=== PATIENT | female | born 1930 | race Caucasian/White ===

== ENCOUNTER 2017-01-10 10:47 | Inpatient (IN) | payer MEDICARE ==
[2017-01-10 12:43] LABS: HEMATOCRIT 34.7 % (36.0-47.0); HEMOGLOBIN 11.1 g/dL (12.0-15.5); HGB HCT DIFFERENCE -1.4; MEAN CORPUSCULAR HEMOGLOBIN 25.7 pg (27.0-33.4); MEAN CORPUSCULAR VOLUME 80 fl (80-97); RED BLOOD COUNT 4.32 10^6/uL (3.72-5.28); RED CELL DISTRIBUTION WIDTH 17.3 % (11.5-14.0); WHITE BLOOD COUNT 11.6 10^3/uL (4.0-10.5)
[2017-01-10 13:03] LABS: ALANINE AMINOTRANSFERASE 17 U/L (9-52); ALBUMIN 3.3 g/dL (3.5-5.0); ALKALINE PHOSPHATASE 104 U/L (38-126); ANION GAP 13 (5-19); ASPARTATE AMINO TRANSFERASE 13 U/L (14-36); BILIRUBIN,TOTAL 0.8 mg/dL (0.2-1.3); BLOOD UREA NITROGEN 70 mg/dL (7-20); CALCIUM 9.1 mg/dL (8.4-10.2); CARBON DIOXIDE 24 mmol/L (22-30); CHLORIDE 98 mmol/L (98-107); CREATININE RESULT 2.48 mg/dL (0.52-1.25); GLUCOSE 284 mg/dL (75-110); POTASSIUM 5.7 mmol/L (3.6-5.0); SODIUM 134.6 mmol/L (137-145); TOTAL PROTEIN 6.9 g/dL (6.3-8.2)
[2017-01-10] MEDS ORDERED: LEVOFLOXACIN 750 MG/D5W RTU 750 MG/150 ML RTUPB IV ONE (14:00)
[2017-01-10] MEDS ORDERED: ENOXAPARIN SODIUM INJ 30 MG/0.3 ML DISP.SYRIN SUBCUT ONE (14:00)
[2017-01-10] MEDS ORDERED: ENOXAPARIN SODIUM INJ 40 MG/0.4 ML DISP.SYRIN SUBCUT ONE (14:00)
[2017-01-10] MEDS ORDERED: NORMAL SALINE 1000 ML 1,000 ML IV PRN (14:29)
[2017-01-10] MEDS ORDERED: DEXTROSE 50%-WATER 25 GM/50 ML DISP.SYRIN IV PRN ×2 (15:59)
[2017-01-10] MEDS ORDERED: DEXTROSE 40% GEL 15 GM TUBE PO PRN ×2 (15:59)
[2017-01-10] MEDS ORDERED: GLUCAGON,HUMAN RECOMB 1 MG INJ IM PRN (15:59)
[2017-01-10 16:45] LABS: CHOLESTEROL 193.47 mg/dL (0-200); Direct HDL 40 mg/dL (>40); TRIGLYCERIDES 162 mg/dL (<150)
[2017-01-10 16:56] LABS: DIRECT LDL 95 mg/dL (<100)
[2017-01-10 16:58] LABS: VLDL CHOLESTEROL 32.4 mg/dL (10-31)
[2017-01-10 17:25] LABS: APPEARANCE,URINE CLEAR; BILIRUBIN,URINE NEGATIVE (NEGATIVE); GLUCOSE, URINE NEGATIVE (NEGATIVE); KETONES,URINE NEGATIVE (NEGATIVE); LEUKOCYTE ESTERASE,URINE NEGATIVE (NEGATIVE); NITRITE,URINE NEGATIVE (NEGATIVE); PROTEIN,URINE NEGATIVE (NEGATIVE); URINE SPECIFIC GRAVITY 1.012; UROBILINOGEN,URINE NEGATIVE mg/dL (<2.0)
[2017-01-10] MEDS ORDERED: (PENDING PHARMACY ID) (Oxycodone Hcl/Acetaminophen [Endocet 10-325 Mg Tablet] 1 TAB) PO SCH (18:00)
[2017-01-10] MEDS: SODIUM POLYSTYRENE SULFONATE 15 GM/60 ML PO SCH ×2 (18:16→23:29)
[2017-01-10] MEDS: OXYCODONE HCL IR 5 MG TABLET PO SCH ×2 (18:16→23:38)
[2017-01-10] MEDS: OXYCODONE-ACETAMINOPHEN 5-325 MG TABLET PO SCH ×2 (18:16→23:38)
[2017-01-10] MEDS: INSULIN LISPRO 100 UNIT/ML 3 ML VIAL SUBCUT PRN ×2 (18:21→23:37)
[2017-01-10] MEDS ORDERED: IPRATROPIUM/ALBUTEROL 0.5-2.5 MG/3 ML AMPUL NEB ONE (18:43)
[2017-01-10] MEDS ORDERED: METOPROLOL SUCCINATE 50 MG TAB.SR.24H PO SCH (22:45)
[2017-01-10] MEDS: NORMAL SALINE 250 ML with FUROSEMIDE 250 MG IV PRN ×2 (23:30)
[2017-01-11] MEDS: IPRATROPIUM/ALBUTEROL 0.5-2.5 MG/3 ML AMPUL NEB PRN ×2 (04:23→11:06)
[2017-01-11] MEDS: OXYCODONE HCL IR 5 MG TABLET PO SCH ×4 (06:07→23:37)
[2017-01-11] MEDS: OXYCODONE-ACETAMINOPHEN 5-325 MG TABLET PO SCH ×4 (06:07→23:38)
[2017-01-11] MEDS: SODIUM POLYSTYRENE SULFONATE 15 GM/60 ML PO SCH ×2 (06:07→13:25)
[2017-01-11 07:46] LABS: HEMATOCRIT 31.9 % (36.0-47.0); HEMOGLOBIN 10.2 g/dL (12.0-15.5); HGB HCT DIFFERENCE -1.3; MEAN CORPUSCULAR HEMOGLOBIN 25.5 pg (27.0-33.4); MEAN CORPUSCULAR VOLUME 80 fl (80-97); RED CELL DISTRIBUTION WIDTH 17.2 % (11.5-14.0); WHITE BLOOD COUNT 12.6 10^3/uL (4.0-10.5)
[2017-01-11 07:55] LABS: ALANINE AMINOTRANSFERASE 18 U/L (9-52); ALBUMIN 3.4 g/dL (3.5-5.0); ALKALINE PHOSPHATASE 80 U/L (38-126); ANION GAP 11 (5-19); ASPARTATE AMINO TRANSFERASE 22 U/L (14-36); BILIRUBIN,TOTAL 0.7 mg/dL (0.2-1.3); BLOOD UREA NITROGEN 76 mg/dL (7-20); CALCIUM 8.7 mg/dL (8.4-10.2); CARBON DIOXIDE 25 mmol/L (22-30); CHLORIDE 101 mmol/L (98-107); CREATININE RESULT 2.43 mg/dL (0.52-1.25); GLUCOSE 204 mg/dL (75-110); POTASSIUM 5.2 mmol/L (3.6-5.0); SODIUM 137.3 mmol/L (137-145); TOTAL PROTEIN 6.5 g/dL (6.3-8.2)
[2017-01-11 08:11] LABS: ANISOCYTOSIS 2+; BAND NEUTROPHILS % (MANUAL) 3 % (3-5); BASOPHILS % (MANUAL) 0 % (0-2); EOSINOPHILS % (MANUAL) 0 % (0-6); HYPOCHROMASIA SLIGHT; LYMPHOCYTES % (MANUAL) 2 % (13-45); POLYCHROMASIA SLIGHT; TOTAL CELLS COUNTED 100; TOXIC GRANULATION SLIGHT
--- NOTE | 2017-01-11 08:18 | EKG REPORT ---
SEVERITY:- ABNORMAL ECG - ATRIAL FIBRILLATION VENTRICULAR PREMATURE COMPLEX ABERRANT COMPLEX, POSSIBLY SUPRAVENTRICULAR PROBABLE INFERIOR INFARCT, AGE INDETERMINATE CONSIDER POSTERIOR WALL INVOLVEMENT BORDERLINE PROLONGED QT INTERVAL : Confirmed by: Sasha Ambrose MD 11-Jan-2017 08:17:50
[2017-01-11] MEDS ORDERED: ENOXAPARIN SODIUM INJ 40 MG/0.4 ML DISP.SYRIN SUBCUT SCH (10:00)
[2017-01-11] MEDS: ENOXAPARIN SODIUM INJ 30 MG/0.3 ML DISP.SYRIN SUBCUT SCH (10:50)
[2017-01-11] MEDS: INSULIN LISPRO 100 UNIT/ML 3 ML VIAL SUBCUT PRN (12:43)
[2017-01-11] MEDS: NORMAL SALINE 250 ML with FUROSEMIDE 250 MG IV PRN ×2 (17:09)
--- NOTE | 2017-01-11 17:49 | PDOC H&P ---
History of Present Illness Admission Date/PCP: 01/10/17 10:47 FAUSTO GONSALES MD History of Present Illness: INDU TAN is a 86 year old female, history of diabetes mellitus type II with complication, she came to the office with his son. The son was concerned that she may have aspirated because she sounded wheezy. She was seen in the office and evaluated patient and look acutely ill, the son also stated that she has lost appetite and that she was confused, I could not obtain any reasonable history from the patient. She is well-known to me, she has been my patient for over 10 years and she was obviously different from prior office visit. She was admitted directly from the office into the hospital for evaluation and management. A CT chest was done it showed patchy ground glass opacity throughout both lungs. The differential diagnoses included alveolar consolidation, edema versus pneumonia. There was associated acute kidney injury. The serum BNP was elevated and she was severely volume overloaded. She is status post right above knee amputation the left lower extremity was extremely edematous and on auscultation of the chest there was diffuse crackles and rales. The EKG showed atrial fibrillation, which is new. She has no history of A. fib and she is rate controlled, she is on beta noel, metoprolol succinate Past Medical History Cardiac Medical History: Reports: Hyperlipidema, Hypertension, Peripheral Vascular Disease - A history of peripheral vascular disease, status post right above knee ampu Pulmonary Medical History: Reports: Pneumonia Neurological Medical History: Reports: Ischemic CVA Endocrine Medical History: Reports: Diabetes Mellitus Type 2, Obesity Musculoskeltal Medical History: Reports: Arthritis Past Surgical History Past Surgical History: Reports: Amputation - R AKA, Appendectomy, Cholecystectomy, Hysterectomy, Orthopedic Surgery - right AKA Social History Lives with: Family Smoking Status: Never Smoker Frequency of Alcohol Use: None Hx Recreational Drug Use: No Drugs: None Hx Prescription Drug Abuse: No Family History Family History: None Parental Family History Reviewed: Yes Children Family History Reviewed: Yes Sibling(s) Family History Reviewed.: Yes Medication/Allergy Home Medications: Amlodipine Besylate [Norvasc 10 mg Tablet] 10 mg PO DAILY 01/10/17 Aspirin [Ecotrin] 81 mg PO DAILY 01/10/17 Furosemide [Lasix] 40 mg PO DAILY 01/10/17 Glucagon,Human Recombinant [Glucagon Emergency Kit] 1 mg SQ ASDIR PRN 01/10/17 Insulin Aspart [Novolog Flexpen] See Protocol SQ DAILY 01/10/17 Insulin Glargine,Hum.rec.anlog [Lantus Solostar] 10 units SQ DAILY 01/10/17 Metoprolol Succinate [Toprol XL 100 mg Tablet] 100 mg PO BID 01/10/17 Oxycodone HCl/Acetaminophen [Endocet 10-325 mg Tablet] 1 tab PO Q6 01/10/17 Pravastatin Sodium [Pravachol] 20 mg PO DAILY 01/10/17 Sitagliptin Phosphate [Januvia] 100 mg PO DAILY 01/10/17 Allergies/Adverse Reactions: No Known Allergies Allergy (Unverified 02/22/12 15:51) Review of Systems Constitutional: PRESENT: anorexia, fatigue Cardiovascular: PRESENT: dyspnea on exertion Gastrointestinal: PRESENT: bloating, nausea Neurological: PRESENT: confusion Hematologic/Lymphatic: PRESENT: easy bruising Physical Exam Vital Signs: Temp Pulse Resp BP Pulse Ox 97.7 F 69 22 H 141/88 H 92 01/11/17 10:40 01/11/17 14:00 01/11/17 11:09 01/11/17 10:40 01/11/17 11:09 Intake & Output 01/10/17 01/11/17 01/12/17 06:59 06:59 06:59 Intake Total 450 Output Total 450 Balance 0 Weight 115.1 kg General appearance: PRESENT: morbidly obese, severe distress Eye exam: PRESENT: periorbital swelling, PERRLA Respiratory exam: PRESENT: crackles Cardiovascular exam: PRESENT: +S1, +S2, systolic murmur GI/Abdominal exam: PRESENT: soft Extremities exam: PRESENT: right AKA, pedal edema - Of the left lower extremities Neurological exam: PRESENT: alert, altered Results Laboratory Results: 01/11/17 07:25 01/11/17 07:25 01/11/17 01/11/17 07:25 07:25 WBC 12.6 H RBC 4.00 Hgb 10.2 L Hct 31.9 L MCV 80 MCH 25.5 L MCHC 32.0 RDW 17.2 H Plt Count 196 Seg Neutrophils % Not Reportable Lymphocytes % Not Reportable Monocytes % Not Reportable Eosinophils % Not Reportable Basophils % Not Reportable Absolute Neutrophils Not Reportable Absolute Lymphocytes Not Reportable Absolute Monocytes Not Reportable Absolute Eosinophils Not Reportable Absolute Basophils Not Reportable Sodium 137.3 Potassium 5.2 H Chloride 101 Carbon Dioxide 25 Anion Gap 11 BUN 76 H Creatinine 2.43 H Est GFR ( Amer) 23 L Est GFR (Non-Af Amer) 19 L Glucose 204 H Calcium 8.7 Total Bilirubin 0.7 AST 22 ALT 18 Alkaline Phosphatase 80 Total Protein 6.5 Albumin 3.4 L 01/10/17 12:31 NT-Pro-B Natriuret Pep 36874 H 01/10/17 01/10/17 12:31 12:31 Sodium 134.6 L Potassium 5.7 H BUN 70 H Creatinine 2.48 H NT-Pro-B Natriuret Pep 32177 H Impressions: Chest CT 01/10/17 00:00 IMPRESSION: Suspect fluid overload or congestive failure, with alveolar pulmonary edema and small right, trace left pleural effusions. Underlying pneumonia could not entirely be excluded Renal Ultrasound 01/10/17 00:00 IMPRESSION: There is questionable perinephric fluid on the right. No other significant findings. Assessment & Plan - Diagnosis (1) Acute hypoxemic respiratory failure Is this a current diagnosis for this admission?: YesPlan: The oxygen saturation is in the low 90s and late 80s suggesting acute hypoxemic respiratory failure. She is presently requiring oxygen nasal cannula. She may require positive pressure ventilation with BiPAP (2) Paroxysmal atrial fibrillation Is this a current diagnosis for this admission?: Yes (3) Acute pulmonary edema Is this a current diagnosis for this admission?: YesPlan: Acute pulmonary edema. The differential diagnoses includes acute systolic heart failure, acute kidney injury with pulmonary edema, she may need hemodialysis if she doesn't respond to furosemide infusion. A 2-D echo will be requested to assess LV function
[2017-01-11] MEDS: PHARMACY COMMUNICATION ORDER MC SCH (18:26)
[2017-01-11] MEDS ORDERED: NORMAL SALINE 250 ML with FUROSEMIDE 250 MG IV PRN ×2 (18:32)
[2017-01-11 18:38] LABS: CREATINE KINASE MB 3.23 ng/mL (<4.55)
[2017-01-11 18:39] LABS: TROPONIN I < 0.012 ng/mL
--- NOTE | 2017-01-11 18:42 | PDOC PROGRESS REPORT ---
Subjective Progress Note for:: 01/11/17 Subjective:: Patient was seen by the bedside, she was admitted yesterday because of acute hypoxemic respiratory failure due to acute pulmonary edema, probably due to acute kidney injury, oliguric, type. Yesterday she was started on furosemide infusion at 10 mg/hr., she is still not diuresing very well. Family does not want hemodialysis, family wants patient to be DO NOT RESUSCITATE because that this patient. She does not want life support. She has been requiring positive pressure ventilation with BiPAP. Physical Exam Vital Signs: Temp Pulse Resp BP Pulse Ox 97.7 F 69 22 H 141/88 H 92 01/11/17 10:40 01/11/17 14:00 01/11/17 11:09 01/11/17 10:40 01/11/17 11:09 Intake & Output 01/10/17 01/11/17 01/12/17 06:59 06:59 06:59 Intake Total 450 401 Output Total 450 Balance 0 401 Weight 115.1 kg General appearance: PRESENT: severe distress Eye exam: PRESENT: PERRLA Respiratory exam: PRESENT: crackles Cardiovascular exam: PRESENT: +S1, +S2 GI/Abdominal exam: PRESENT: soft Extremities exam: PRESENT: pedal edema Neurological exam: PRESENT: alert Results Laboratory Results: 01/11/17 07:25 01/11/17 07:25 01/11/17 01/11/17 07:25 07:25 WBC 12.6 H RBC 4.00 Hgb 10.2 L Hct 31.9 L MCV 80 MCH 25.5 L MCHC 32.0 RDW 17.2 H Plt Count 196 Seg Neutrophils % Not Reportable Lymphocytes % Not Reportable Monocytes % Not Reportable Eosinophils % Not Reportable Basophils % Not Reportable Absolute Neutrophils Not Reportable Absolute Lymphocytes Not Reportable Absolute Monocytes Not Reportable Absolute Eosinophils Not Reportable Absolute Basophils Not Reportable Sodium 137.3 Potassium 5.2 H Chloride 101 Carbon Dioxide 25 Anion Gap 11 BUN 76 H Creatinine 2.43 H Est GFR ( Amer) 23 L Est GFR (Non-Af Amer) 19 L Glucose 204 H Calcium 8.7 Total Bilirubin 0.7 AST 22 ALT 18 Alkaline Phosphatase 80 Total Protein 6.5 Albumin 3.4 L 01/10/17 01/11/17 12:31 18:04 Creatine Kinase 282 H NT-Pro-B Natriuret Pep 41569 H Impressions: Chest CT 01/10/17 00:00 IMPRESSION: Suspect fluid overload or congestive failure, with alveolar pulmonary edema and small right, trace left pleural effusions. Underlying pneumonia could not entirely be excluded Renal Ultrasound 01/10/17 00:00 IMPRESSION: There is questionable perinephric fluid on the right. No other significant findings. Assessment & Plan - Diagnosis (1) Acute hypoxemic respiratory failure Is this a current diagnosis for this admission?: Yes (2) Paroxysmal atrial fibrillation Is this a current diagnosis for this admission?: Yes (3) Acute pulmonary edema Is this a current diagnosis for this admission?: Yes (4) Acute kidney injury Is this a current diagnosis for this admission?: YesPlan: She has oliguric acute kidney injury, will increase Lasix to 20 mg per hour, the acute kidney injury is probably due to ATN when she had arrived, she had relatively low blood pressure and acute pulmonary edema is probably renal etiology (5) Cardiorenal syndrome with renal failure Is this a current diagnosis for this admission?: Yes
[2017-01-11] MEDS: ATORVASTATIN CALCIUM 10 MG TABLET PO SCH (23:37)
[2017-01-12 02:53] LABS: CREATINE KINASE MB 2.88 ng/mL (<4.55)
[2017-01-12 03:03] LABS: TROPONIN I < 0.012 ng/mL
[2017-01-12] MEDS: METOPROLOL SUCCINATE 50 MG TAB.SR.24H PO SCH ×3 (03:54→22:49)
[2017-01-12] MEDS: IPRATROPIUM/ALBUTEROL 0.5-2.5 MG/3 ML AMPUL NEB PRN (06:37)
[2017-01-12] MEDS: OXYCODONE-ACETAMINOPHEN 5-325 MG TABLET PO SCH ×3 (06:52→17:50)
[2017-01-12] MEDS: OXYCODONE HCL IR 5 MG TABLET PO SCH ×3 (06:53→17:50)
[2017-01-12] MEDS: DOPAMINE HCL 800 MG/D5W 250 ML IV PRN (09:10)
[2017-01-12] MEDS ORDERED: ONDANSETRON HCL INJ/PF 4 MG/2 ML SDV ONE (09:19)
[2017-01-12] MEDS ORDERED: ONDANSETRON HCL INJ/PF 4 MG/2 ML SDV IV PRN (09:29)
[2017-01-12 10:17] LABS: VENOUS BLOOD BASE EXCESS 0.3 mmol/L; VENOUS BLOOD PH 7.28 (7.30-7.42)
[2017-01-12 10:20] LABS: HEMATOCRIT 30.3 % (36.0-47.0); HEMOGLOBIN 9.6 g/dL (12.0-15.5); HGB HCT DIFFERENCE -1.5; MEAN CORPUSCULAR HEMOGLOBIN 25.3 pg (27.0-33.4); MEAN CORPUSCULAR HGB CONC 31.6 g/dL (32.0-36.0); MEAN CORPUSCULAR VOLUME 80 fl (80-97); RED BLOOD COUNT 3.79 10^6/uL (3.72-5.28); RED CELL DISTRIBUTION WIDTH 17.3 % (11.5-14.0); WHITE BLOOD COUNT 13.4 10^3/uL (4.0-10.5)
[2017-01-12 10:39] LABS: ALANINE AMINOTRANSFERASE 22 U/L (9-52); ALBUMIN 3.2 g/dL (3.5-5.0); ALKALINE PHOSPHATASE 84 U/L (38-126); ANION GAP 15 (5-19); ASPARTATE AMINO TRANSFERASE 17 U/L (14-36); BILIRUBIN,TOTAL 0.6 mg/dL (0.2-1.3); BLOOD UREA NITROGEN 75 mg/dL (7-20); CALCIUM 8.6 mg/dL (8.4-10.2); CARBON DIOXIDE 23 mmol/L (22-30); CHLORIDE 101 mmol/L (98-107); CREATINE KINASE 247 U/L (30-135); CREATININE RESULT 2.27 mg/dL (0.52-1.25); GLUCOSE 281 mg/dL (75-110); MAGNESIUM 2.7 mg/dL (1.6-2.3); POTASSIUM 3.9 mmol/L (3.6-5.0); TOTAL PROTEIN 6.1 g/dL (6.3-8.2)
[2017-01-12 10:41] LABS: BAND NEUTROPHILS % (MANUAL) 1 % (3-5); BASOPHILS % (MANUAL) 0 % (0-2); EOSINOPHILS % (MANUAL) 1 % (0-6); LYMPHOCYTES % (MANUAL) 4 % (13-45); TOTAL CELLS COUNTED 100
[2017-01-12 10:42] LABS: ANISOCYTOSIS 1+; HYPOCHROMASIA 1+; POLYCHROMASIA SLIGHT; TOXIC GRANULATION SLIGHT
[2017-01-12 10:51] LABS: CREATINE KINASE MB 3.28 ng/mL (<4.55)
[2017-01-12 10:54] LABS: TROPONIN I < 0.012 ng/mL
[2017-01-12] MEDS: LEVOFLOXACIN 750 MG/D5W RTU 750 MG/150 ML RTUPB IV SCH (11:15)
[2017-01-12] MEDS: ENOXAPARIN SODIUM INJ 30 MG/0.3 ML DISP.SYRIN SUBCUT SCH (11:17)
[2017-01-12] MEDS: INSULIN LISPRO 100 UNIT/ML 3 ML VIAL SUBCUT PRN (11:28)
[2017-01-12 12:38] LABS: CREATININE URINE 101.5 mg/dL (Not Estab.); CREATININE URINE 109.4 mg/dL (Not Estab.)
--- NOTE | 2017-01-12 17:19 | PDOC PROGRESS REPORT ---
Subjective Progress Note for:: 01/12/17 Subjective:: Patient's condition is very poor, the blood pressure is very low and she was taken off the Lasix infusion and she is presently on dopamine infusion, she is a DO NOT RESUSCITATE status. Physical Exam Vital Signs: Temp Pulse Resp BP Pulse Ox 98.2 F 94 24 H 73/48 L 90 L 01/12/17 16:00 01/12/17 16:00 01/12/17 16:00 01/12/17 13:00 01/12/17 16:00 Intake & Output 01/11/17 01/12/17 01/13/17 06:59 06:59 06:59 Intake Total 450 1011 Output Total 450 525 100 Balance 0 486 -100 Weight 115.1 kg 119 kg General appearance: PRESENT: mild distress Eye exam: PRESENT: PERRLA Respiratory exam: PRESENT: clear to auscultation lolis Cardiovascular exam: PRESENT: +S1, +S2 GI/Abdominal exam: PRESENT: soft Neurological exam: PRESENT: altered Results Laboratory Results: 01/12/17 10:04 01/12/17 10:04 01/12/17 01/12/17 01/12/17 10:04 10:04 10:04 WBC 13.4 H RBC 3.79 Hgb 9.6 L Hct 30.3 L MCV 80 MCH 25.3 L MCHC 31.6 L RDW 17.3 H Plt Count 232 Seg Neutrophils % Not Reportable Lymphocytes % Not Reportable Monocytes % Not Reportable Eosinophils % Not Reportable Basophils % Not Reportable Absolute Neutrophils Not Reportable Absolute Lymphocytes Not Reportable Absolute Monocytes Not Reportable Absolute Eosinophils Not Reportable Absolute Basophils Not Reportable VBG pH 7.28 L VBG pCO2 61.0 VBG HCO3 28.0 VBG Base Excess 0.3 Sodium 139.0 Potassium 3.9 Chloride 101 Carbon Dioxide 23 Anion Gap 15 BUN 75 H Creatinine 2.27 H Est GFR ( Amer) 25 L Est GFR (Non-Af Amer) 20 L Glucose 281 H Calcium 8.6 Magnesium 2.7 H Total Bilirubin 0.6 AST 17 ALT 22 Alkaline Phosphatase 84 Total Protein 6.1 L Albumin 3.2 L 01/12/17 09:20 Sputum Gram Stain - Final 01/12/17 09:20 Sputum Sputum Culture - Final 01/10/17 01/11/17 01/11/17 12:31 18:04 18:04 Creatine Kinase 282 H CK-MB (CK-2) 3.23 Troponin I < 0.012 NT-Pro-B Natriuret Pep [id number] H 01/12/17 01/12/17 01/12/17 02:11 02:11 10:04 Creatine Kinase 218 H 247 H CK-MB (CK-2) 2.88 Troponin I < 0.012 NT-Pro-B Natriuret Pep 01/12/17 10:04 Creatine Kinase CK-MB (CK-2) 3.28 Troponin I < 0.012 NT-Pro-B Natriuret Pep 60022 H Impressions: Chest CT 01/10/17 00:00 IMPRESSION: Suspect fluid overload or congestive failure, with alveolar pulmonary edema and small right, trace left pleural effusions. Underlying pneumonia could not entirely be excluded Renal Ultrasound 01/10/17 00:00 IMPRESSION: There is questionable perinephric fluid on the right. No other significant findings. Assessment & Plan - Diagnosis (1) Acute hypoxemic respiratory failure Is this a current diagnosis for this admission?: Yes (2) Paroxysmal atrial fibrillation Is this a current diagnosis for this admission?: Yes (3) Acute pulmonary edema Is this a current diagnosis for this admission?: Yes (4) Acute kidney injury Is this a current diagnosis for this admission?: Yes (5) Cardiorenal syndrome with renal failure Is this a current diagnosis for this admission?: Yes (6) Hypotension Qualifiers: Hypotension type: unspecified hypotension type Qualified Code(s): I95.9 - Hypotension, unspecified Is this a current diagnosis for this admission?: YesPlan: Patient's prognosis is very poor presently on pressor dopamine
[2017-01-12] MEDS: PHARMACY COMMUNICATION ORDER MC SCH (17:53)
[2017-01-12] MEDS: ATORVASTATIN CALCIUM 10 MG TABLET PO SCH (22:49)
[2017-01-13] MEDS: OXYCODONE-ACETAMINOPHEN 5-325 MG TABLET PO SCH ×4 (00:05→18:16)
[2017-01-13] MEDS: OXYCODONE HCL IR 5 MG TABLET PO SCH ×4 (00:05→18:16)
[2017-01-13] MEDS: DOPAMINE HCL 800 MG/D5W 250 ML IV PRN (07:31)
[2017-01-13 08:06] LABS: HEMATOCRIT 29.4 % (36.0-47.0); HEMOGLOBIN 9.3 g/dL (12.0-15.5); HGB HCT DIFFERENCE -1.5; MEAN CORPUSCULAR HEMOGLOBIN 25.6 pg (27.0-33.4); MEAN CORPUSCULAR HGB CONC 31.5 g/dL (32.0-36.0); MEAN CORPUSCULAR VOLUME 81 fl (80-97); RED BLOOD COUNT 3.62 10^6/uL (3.72-5.28); RED CELL DISTRIBUTION WIDTH 17.1 % (11.5-14.0); WHITE BLOOD COUNT 10.9 10^3/uL (4.0-10.5)
[2017-01-13 08:23] LABS: ALANINE AMINOTRANSFERASE 25 U/L (9-52); ALBUMIN 3.2 g/dL (3.5-5.0); ALKALINE PHOSPHATASE 73 U/L (38-126); ANION GAP 17 (5-19); ASPARTATE AMINO TRANSFERASE 14 U/L (14-36); BILIRUBIN,TOTAL 0.5 mg/dL (0.2-1.3); BLOOD UREA NITROGEN 79 mg/dL (7-20); CALCIUM 8.2 mg/dL (8.4-10.2); CARBON DIOXIDE 21 mmol/L (22-30); CHLORIDE 100 mmol/L (98-107); CREATININE RESULT 2.35 mg/dL (0.52-1.25); GLUCOSE 269 mg/dL (75-110); POTASSIUM 3.9 mmol/L (3.6-5.0); SODIUM 137.8 mmol/L (137-145); TOTAL PROTEIN 5.7 g/dL (6.3-8.2)
[2017-01-13 08:26] LABS: BASOPHILS % (MANUAL) 0 % (0-2); EOSINOPHILS % (MANUAL) 0 % (0-6); LYMPHOCYTES % (MANUAL) 10 % (13-45); TOTAL CELLS COUNTED 100
[2017-01-13 08:28] LABS: ANISOCYTOSIS 1+; HYPOCHROMASIA 1+; OVALOCYTES SLIGHT; POIKILOCYTOSIS SLIGHT; POLYCHROMASIA SLIGHT
--- NOTE | 2017-01-13 09:11 | PDOC PROGRESS REPORT ---
Subjective Progress Note for:: 01/13/17 Subjective:: This is a 86-year-old female admitted for the respiratory failure heart failure and the pulmonary edema currently on dopamine drip and unable to continues the Lasix drip because of the blood pressures. Patient is unable to keep the oxygen mask and patient's O2 sats is drop. Patient and her significant morbid obesity with all other comorbid medical conditions with the poor prognosis and patient's currently is a DO NOT RESUSCITATE Physical Exam Vital Signs: Temp Pulse Resp BP Pulse Ox 97.2 F 96 22 H 111/96 H 94 01/13/17 07:29 01/13/17 07:29 01/13/17 07:29 01/13/17 04:00 01/13/17 07:29 Intake & Output 01/12/17 01/13/17 01/14/17 06:59 06:59 06:59 Intake Total 1011 1070 Output Total 525 700 Balance 486 370 Weight 119 kg 117 kg General appearance: PRESENT: no acute distress, obese Head exam: PRESENT: normocephalic Eye exam: PRESENT: PERRLA Mouth exam: PRESENT: neck supple Neck exam: ABSENT: JVD Respiratory exam: PRESENT: decreased breath sounds Cardiovascular exam: PRESENT: +S1, +S2 GI/Abdominal exam: PRESENT: normal bowel sounds, soft Extremities exam: PRESENT: pedal edema Neurological exam: PRESENT: alert, altered Results Laboratory Results: 01/13/17 07:52 01/13/17 07:52 01/12/17 01/12/17 01/12/17 10:04 10:04 10:04 WBC 13.4 H RBC 3.79 Hgb 9.6 L Hct 30.3 L MCV 80 MCH 25.3 L MCHC 31.6 L RDW 17.3 H Plt Count 232 Seg Neutrophils % Not Reportable Lymphocytes % Not Reportable Monocytes % Not Reportable Eosinophils % Not Reportable Basophils % Not Reportable Absolute Neutrophils Not Reportable Absolute Lymphocytes Not Reportable Absolute Monocytes Not Reportable Absolute Eosinophils Not Reportable Absolute Basophils Not Reportable VBG pH 7.28 L VBG pCO2 61.0 VBG HCO3 28.0 VBG Base Excess 0.3 Sodium 139.0 Potassium 3.9 Chloride 101 Carbon Dioxide 23 Anion Gap 15 BUN 75 H Creatinine 2.27 H Est GFR ( Amer) 25 L Est GFR (Non-Af Amer) 20 L Glucose 281 H Calcium 8.6 Magnesium 2.7 H Total Bilirubin 0.6 AST 17 ALT 22 Alkaline Phosphatase 84 Total Protein 6.1 L Albumin 3.2 L 01/13/17 01/13/17 07:52 07:52 WBC 10.9 H RBC 3.62 L Hgb 9.3 L Hct 29.4 L MCV 81 MCH 25.6 L MCHC 31.5 L RDW 17.1 H Plt Count 202 Seg Neutrophils % Not Reportable Lymphocytes % Not Reportable Monocytes % Not Reportable Eosinophils % Not Reportable Basophils % Not Reportable Absolute Neutrophils Not Reportable Absolute Lymphocytes Not Reportable Absolute Monocytes Not Reportable Absolute Eosinophils Not Reportable Absolute Basophils Not Reportable VBG pH VBG pCO2 VBG HCO3 VBG Base Excess Sodium 137.8 Potassium 3.9 Chloride 100 Carbon Dioxide 21 L Anion Gap 17 BUN 79 H Creatinine 2.35 H Est GFR ( Amer) 24 L Est GFR (Non-Af Amer) 20 L Glucose 269 H Calcium 8.2 L Magnesium Total Bilirubin 0.5 AST 14 ALT 25 Alkaline Phosphatase 73 Total Protein 5.7 L Albumin 3.2 L 01/12/17 09:20 Sputum Gram Stain - Final 01/12/17 09:20 Sputum Sputum Culture - Final 01/10/17 01/11/17 01/11/17 12:31 18:04 18:04 Creatine Kinase 282 H CK-MB (CK-2) 3.23 Troponin I < 0.012 NT-Pro-B Natriuret Pep 99965 H 01/12/17 01/12/17 01/12/17 02:11 02:11 10:04 Creatine Kinase 218 H 247 H CK-MB (CK-2) 2.88 Troponin I < 0.012 NT-Pro-B Natriuret Pep 01/12/17 10:04 Creatine Kinase CK-MB (CK-2) 3.28 Troponin I < 0.012 NT-Pro-B Natriuret Pep [id number] H Impressions: Chest CT 01/10/17 00:00 IMPRESSION: Suspect fluid overload or congestive failure, with alveolar pulmonary edema and small right, trace left pleural effusions. Underlying pneumonia could not entirely be excluded Renal Ultrasound 01/10/17 00:00 IMPRESSION: There is questionable perinephric fluid on the right. No other significant findings. Assessment & Plan - Diagnosis (1) Acute hypoxemic respiratory failure Is this a current diagnosis for this admission?: YesPlan: Continues on the oxygen and the BiPAP (2) Acute kidney injury Is this a current diagnosis for this admission?: YesPlan: Currently stable continues the current medications patient's Lasix drip was d/c (3) Acute pulmonary edema Is this a current diagnosis for this admission?: YesPlan: We will continues the patient on by mouth Lasix with the with the low blood pressures with close monitor and continues in her dopamine drip (4) Hypotension Qualifiers: Hypotension type: unspecified hypotension type Qualified Code(s): I95.9 - Hypotension, unspecified Is this a current diagnosis for this admission?: YesPlan: With the multifactorial medical conditions. 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: unspecified mcfp insulin use status Qualified Code(s): E11.649 - Type 2 diabetes mellitus with hypoglycemia without coma Is this a current diagnosis for this admission?: YesPlan: Stable - Time Time Spent with patient: 15-24 minutes Medications reviewed and adjusted accordingly: Yes Anticipated discharge: Other - Inpatient Certification Medical Necessity: Significant Comorbidiites Make Outpatient Treatment Too Risky , Need Close Monitoring Due to Risk of Patient Decompensation 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
[2017-01-13] MEDS: METOPROLOL SUCCINATE 50 MG TAB.SR.24H PO SCH ×2 (10:27→22:35)
[2017-01-13] MEDS: ENOXAPARIN SODIUM INJ 30 MG/0.3 ML DISP.SYRIN SUBCUT SCH (10:27)
[2017-01-13] MEDS: FUROSEMIDE 20 MG TABLET PO SCH (10:27)
[2017-01-13 11:43] LABS: MICROALBUMIN URINE <3.0 ug/mL (Not Estab.)
--- NOTE | 2017-01-13 12:22 | XCELERA REPORT ---
[address] [address] Transthoracic Echocardiogram Report Name: INDU TAN Age: 86 yrs Gender: Female : 1930 Patient Status: Inpatient Patient Location: [id number]\S\334\S\A Study Date: 01/11/2017 03:03 PM Height: 67 in Weight: 253 lb BSA: 2.2 m2 Procedure: A complete two-dimensional transthoracic echocardiogram was performed (2D, M-mode, spectral and color flow Doppler). The study was technically adequate with some images being suboptimal in quality. Reason For Study: acute systolic heart failure Ordering Physician: FAUSTO GONSALES Performed By: Janneth Kirby Interpretation Summary LV diastolic function could not be adequately assessed due to atrial fibrilation. The study was technically adequate with some images being suboptimal in quality. The left ventricular ejection fraction is preserved. The left ventricle is grossly normal size. There is borderline concentric left ventricular hypertrophy. Not all wall segments were well visualized. The right ventricle appears to be hypertrophied The right ventricle is mildly dilated. The right ventricular systolic function is mildly reduced. The right atrium is mildly dilated. The left atrium is moderately dilated. There is no mitral valve stenosis. There is a trace amount of mitral regurgitation There is no aortic valve stenosis No aortic regurgitation is present. There is a trace to mild amount of tricuspid regurgitation There is mild to moderate pulmonary hypertension by echo There is no pericardial effusion. MMode/2D Measurements \T\ Calculations RVDd: 3.9 cm LVIDd: 4.3 cm FS: 37.1 % Ao root diam: 3.6 cm IVSd: 0.99 cm LVIDs: 2.7 cm EDV(Teich): 84.9 ml LVPWd: 0.95 cmESV(Teich): 27.7 mlAo root area: 10.4 cm2 EF(Teich): 67.3 % LA dimension: 4.7 cm LVOT diam: 2.2 cm LVOT area: 3.9 cm2 Doppler Measurements \T\ Calculations MV E max alfred: MV P1/2t max alfred: Ao V2 max: LV V1 max P.2 cm/sec 143.7 cm/sec 128.5 cm/sec 3.3 mmHg MV P1/2t: 58.2 msec Ao max PG: LV V1 max: MVA(P1/2t): 3.8 cm2 6.6 mmHg 90.5 cm/sec MV dec slope: JERMAIN(V,D): 2.8 cm2 723.1 cm/sec2 MV dec time: 0.20 sec PA V2 max: TR max alfred: 65.6 cm/sec 322.5 cm/sec PA max P.7 mmHgTR max P.6 mmHg Left Ventricle The left ventricle is grossly normal size. There is borderline concentric left ventricular hypertrophy. The left ventricular ejection fraction is preserved. LV diastolic function could not be adequately assessed due to atrial fibrilation. Not all wall segments were well visualized. Right Ventricle The right ventricle is mildly dilated. The right ventricle appears to be hypertrophied. The right ventricular systolic function is mildly reduced. Atria The right atrium is mildly dilated. The left atrium is moderately dilated. Interarterial septum not well visualized and not well dopplered. Cannot comment on ASD/PFO presence. Mitral Valve There is mild mitral leaflet calcification. There is mild to moderate mitral annular calcification. There is no mitral valve stenosis. There is a trace amount of mitral regurgitation. Aortic Valve The aortic valve is mildly calcified. The aortic valve is not well visualized secondary to technical limitations. There is no aortic valve stenosis. No aortic regurgitation is present. Tricuspid Valve The tricuspid valve is not well visualized secondary to technical limitations. There is no tricuspid stenosis. There is a trace to mild amount of tricuspid regurgitation. There is mild to moderate pulmonary hypertension by echo. Right ventricular systolic pressure is estimated to be elevated at 40-50mmHg. Pulmonic Valve The pulmonic valve is not well visualized. Great Vessels The aortic root is not well visualized. The inferior vena cava was not well visualized. Effusions There is no pericardial effusion. : FAUSTO GONSALES > Saji Manley
[2017-01-13] MEDS: INSULIN LISPRO 100 UNIT/ML 3 ML VIAL SUBCUT PRN (16:09)
[2017-01-13] MEDS: PHARMACY COMMUNICATION ORDER MC SCH (18:16)
[2017-01-13] MEDS: ATORVASTATIN CALCIUM 10 MG TABLET PO SCH (22:34)
[2017-01-14] MEDS: OXYCODONE HCL IR 5 MG TABLET PO SCH ×4 (00:12→17:29)
[2017-01-14] MEDS: OXYCODONE-ACETAMINOPHEN 5-325 MG TABLET PO SCH ×4 (00:13→17:29)
[2017-01-14] MEDS: DOPAMINE HCL 800 MG/D5W 250 ML IV PRN (06:03)
[2017-01-14] MEDS: INSULIN LISPRO 100 UNIT/ML 3 ML VIAL SUBCUT PRN ×2 (07:47→22:53)
[2017-01-14] MEDS: ENOXAPARIN SODIUM INJ 30 MG/0.3 ML DISP.SYRIN SUBCUT SCH (07:52)
[2017-01-14 08:18] LABS: HEMATOCRIT 28.8 % (36.0-47.0); HEMOGLOBIN 9.1 g/dL (12.0-15.5); HGB HCT DIFFERENCE -1.5; MEAN CORPUSCULAR HEMOGLOBIN 25.7 pg (27.0-33.4); MEAN CORPUSCULAR HGB CONC 31.7 g/dL (32.0-36.0); MEAN CORPUSCULAR VOLUME 81 fl (80-97); RED BLOOD COUNT 3.55 10^6/uL (3.72-5.28); RED CELL DISTRIBUTION WIDTH 17.1 % (11.5-14.0); WHITE BLOOD COUNT 9.9 10^3/uL (4.0-10.5)
[2017-01-14 08:35] LABS: ALANINE AMINOTRANSFERASE 25 U/L (9-52); ALBUMIN 3.2 g/dL (3.5-5.0); ALKALINE PHOSPHATASE 71 U/L (38-126); ANION GAP 15 (5-19); ASPARTATE AMINO TRANSFERASE 17 U/L (14-36); BAND NEUTROPHILS % (MANUAL) 1 % (3-5); BASOPHILS % (MANUAL) 0 % (0-2); BILIRUBIN,TOTAL 0.5 mg/dL (0.2-1.3); BLOOD UREA NITROGEN 83 mg/dL (7-20); CALCIUM 8.4 mg/dL (8.4-10.2); CARBON DIOXIDE 24 mmol/L (22-30); CHLORIDE 100 mmol/L (98-107); CREATININE RESULT 3.05 mg/dL (0.52-1.25); EOSINOPHILS % (MANUAL) 1 % (0-6); GLUCOSE 218 mg/dL (75-110); LYMPHOCYTES % (MANUAL) 8 % (13-45); POTASSIUM 4.2 mmol/L (3.6-5.0); TOTAL CELLS COUNTED 100; TOTAL PROTEIN 6.1 g/dL (6.3-8.2)
[2017-01-14 08:36] LABS: ANISOCYTOSIS 1+; HYPOCHROMASIA SLIGHT; POLYCHROMASIA SLIGHT
[2017-01-14] MEDS: LEVOFLOXACIN 750 MG/D5W RTU 750 MG/150 ML RTUPB IV SCH (09:22)
[2017-01-14] MEDS: METOPROLOL SUCCINATE 50 MG TAB.SR.24H PO SCH ×2 (09:24→21:38)
[2017-01-14] MEDS: FUROSEMIDE 20 MG TABLET PO SCH (09:24)
--- NOTE | 2017-01-14 11:00 | PDOC PROGRESS REPORT ---
Subjective Progress Note for:: 01/14/17 Subjective:: Patient is doing same currently on oxygens in a BiPAP patient still have a very poor prognosis patient's blood pressure is on a dopamine drip Physical Exam Vital Signs: Temp Pulse Resp BP Pulse Ox 97.6 F 85 24 H 103/57 L 98 01/14/17 09:10 01/14/17 09:10 01/14/17 09:10 01/14/17 09:10 01/14/17 09:10 Intake & Output 01/13/17 01/14/17 01/15/17 06:59 06:59 06:59 Intake Total 1490 538 Output Total 700 300 Balance 790 238 Weight 117 kg 119.9 kg General appearance: PRESENT: no acute distress Head exam: PRESENT: normocephalic Eye exam: PRESENT: PERRLA Mouth exam: PRESENT: neck supple Respiratory exam: PRESENT: decreased breath sounds Cardiovascular exam: PRESENT: +S1, +S2 GI/Abdominal exam: PRESENT: normal bowel sounds, soft Extremities exam: PRESENT: pedal edema Neurological exam: PRESENT: alert, altered, awake Results Laboratory Results: 01/14/17 07:59 01/14/17 07:59 01/14/17 01/14/17 07:59 07:59 WBC 9.9 RBC 3.55 L Hgb 9.1 L Hct 28.8 L MCV 81 MCH 25.7 L MCHC 31.7 L RDW 17.1 H Plt Count 232 Seg Neutrophils % Not Reportable Lymphocytes % Not Reportable Monocytes % Not Reportable Eosinophils % Not Reportable Basophils % Not Reportable Absolute Neutrophils Not Reportable Absolute Lymphocytes Not Reportable Absolute Monocytes Not Reportable Absolute Eosinophils Not Reportable Absolute Basophils Not Reportable Sodium 139.0 Potassium 4.2 Chloride 100 Carbon Dioxide 24 Anion Gap 15 BUN 83 H Creatinine 3.05 H Est GFR ( Amer) 17 L Est GFR (Non-Af Amer) 14 L Glucose 218 H Calcium 8.4 Total Bilirubin 0.5 AST 17 ALT 25 Alkaline Phosphatase 71 Total Protein 6.1 L Albumin 3.2 L 01/12/17 15:15 Sputum Gram Stain - Final 01/12/17 15:15 Sputum Sputum Culture - Final NORMAL AMITA 01/10/17 01/11/17 01/11/17 12:31 18:04 18:04 Creatine Kinase 282 H CK-MB (CK-2) 3.23 Troponin I < 0.012 NT-Pro-B Natriuret Pep 97072 H 01/12/17 01/12/17 01/12/17 02:11 02:11 10:04 Creatine Kinase 218 H 247 H CK-MB (CK-2) 2.88 Troponin I < 0.012 NT-Pro-B Natriuret Pep 01/12/17 10:04 Creatine Kinase CK-MB (CK-2) 3.28 Troponin I < 0.012 NT-Pro-B Natriuret Pep 64451 H Impressions: Chest CT 01/10/17 00:00 IMPRESSION: Suspect fluid overload or congestive failure, with alveolar pulmonary edema and small right, trace left pleural effusions. Underlying pneumonia could not entirely be excluded Renal Ultrasound 01/10/17 00:00 IMPRESSION: There is questionable perinephric fluid on the right. No other significant findings. Assessment & Plan - Diagnosis (1) Acute hypoxemic respiratory failure Is this a current diagnosis for this admission?: YesPlan: Continues on the oxygen and the BiPAP (2) Acute kidney injury Is this a current diagnosis for this admission?: YesPlan: Currently stable continues the current medications patient's Lasix drip was d/c (3) Acute pulmonary edema Is this a current diagnosis for this admission?: YesPlan: We will continues the patient on by mouth Lasix with the with the low blood pressures with close monitor and continues in her dopamine drip (4) Hypotension Qualifiers: Hypotension type: unspecified hypotension type Qualified Code(s): I95.9 - Hypotension, unspecified Is this a current diagnosis for this admission?: YesPlan: With the multifactorial medical conditions. 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 Is this a current diagnosis for this admission?: Yes - Time Time Spent with patient: 15-24 minutes Medications reviewed and adjusted accordingly: Yes Anticipated discharge: Other Within: Other - Inpatient Certification Medical Necessity: Significant Comorbidiites Make Outpatient Treatment Too Risky , Need Close Monitoring Due to Risk of Patient Decompensation 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
[2017-01-14] MEDS: PHARMACY COMMUNICATION ORDER MC SCH (17:29)
[2017-01-14] MEDS: ATORVASTATIN CALCIUM 10 MG TABLET PO SCH (21:38)
[2017-01-15] MEDS: OXYCODONE-ACETAMINOPHEN 5-325 MG TABLET PO SCH ×3 (00:07→12:23)
[2017-01-15] MEDS: OXYCODONE HCL IR 5 MG TABLET PO SCH ×3 (00:08→12:23)
[2017-01-15] MEDS: DOPAMINE HCL 800 MG/D5W 250 ML IV PRN (05:33)
[2017-01-15] MEDS: ENOXAPARIN SODIUM INJ 30 MG/0.3 ML DISP.SYRIN SUBCUT SCH (08:09)
[2017-01-15] MEDS: INSULIN LISPRO 100 UNIT/ML 3 ML VIAL SUBCUT PRN (08:11)
[2017-01-15 08:46] LABS: HEMATOCRIT 28.1 % (36.0-47.0); HEMOGLOBIN 8.8 g/dL (12.0-15.5); HGB HCT DIFFERENCE -1.7; MEAN CORPUSCULAR HEMOGLOBIN 25.6 pg (27.0-33.4); MEAN CORPUSCULAR HGB CONC 31.5 g/dL (32.0-36.0); MEAN CORPUSCULAR VOLUME 81 fl (80-97); RED BLOOD COUNT 3.45 10^6/uL (3.72-5.28); RED CELL DISTRIBUTION WIDTH 17.2 % (11.5-14.0); WHITE BLOOD COUNT 9.2 10^3/uL (4.0-10.5)
[2017-01-15 08:54] LABS: ALANINE AMINOTRANSFERASE 23 U/L (9-52); ALBUMIN 3.2 g/dL (3.5-5.0); ALKALINE PHOSPHATASE 68 U/L (38-126); ANION GAP 18 (5-19); ASPARTATE AMINO TRANSFERASE 21 U/L (14-36); BILIRUBIN,TOTAL 0.5 mg/dL (0.2-1.3); BLOOD UREA NITROGEN 92 mg/dL (7-20); CALCIUM 8.4 mg/dL (8.4-10.2); CARBON DIOXIDE 22 mmol/L (22-30); CHLORIDE 100 mmol/L (98-107); CREATININE RESULT 3.91 mg/dL (0.52-1.25); GLUCOSE 180 mg/dL (75-110); POTASSIUM 4.2 mmol/L (3.6-5.0); SODIUM 139.8 mmol/L (137-145)
[2017-01-15 09:10] LABS: BASOPHILS % (MANUAL) 0 % (0-2); EOSINOPHILS % (MANUAL) 1 % (0-6); LYMPHOCYTES % (MANUAL) 4 % (13-45); TOTAL CELLS COUNTED 100
[2017-01-15 09:12] LABS: HYPOCHROMASIA SLIGHT; POLYCHROMASIA SLIGHT; TOXIC GRANULATION 1+
[2017-01-15 09:13] LABS: ANISOCYTOSIS 1+
[2017-01-15] MEDS: FUROSEMIDE 20 MG TABLET PO SCH (10:02)
[2017-01-15] MEDS: METOPROLOL SUCCINATE 50 MG TAB.SR.24H PO SCH (10:02)
[2017-01-15] MEDS ORDERED: MORPHINE SULFATE 10 MG/ML INJ IV PRN (11:21)
[2017-01-15 12:55] VITALS: BP 80/38
--- NOTE | 2017-01-15 18:49 | Death Summary ---
Summary Date : 01/15/17 Time of :: 12:03 Autopsy: No Resuscitation Status: Comfort Measures Only - Final Diagnosis (1) Septic shock Is this a current diagnosis for this admission?: Yes (2) Acute hypoxemic respiratory failure Is this a current diagnosis for this admission?: Yes (3) Paroxysmal atrial fibrillation Is this a current diagnosis for this admission?: Yes (4) Acute pulmonary edema Is this a current diagnosis for this admission?: Yes (5) Acute kidney injury Is this a current diagnosis for this admission?: Yes (6) Cardiorenal syndrome with renal failure Is this a current diagnosis for this admission?: Yes (7) Hypotension Is this a current diagnosis for this admission?: Yes Hospital Course:: Patient was admitted directly from the office on 01/10/2017 where she presented on acute hypoxemic respiratory failure. CT scan of the chest was done and it showed patchy ground opacities throughtout both lungs,the differential diagnosis included alveolar consolidation versus pulmonary edema ,there was associated acute kidney injury. A 2-D echo was done that showed preserved ejection fraction of the left .ventricle she was treated with IV antibiotic. Patient condition is poor and there was associated severe hypotension. Patient was made a DO NOT RESUSCITATE . Mechanical ventilation was not an option she also requires intravenous pressors .The potential sources of the sepsis was lung and the urine . Patient was made comfort are Measures today and she
== END 2017-01-15 12:03 | disposition expired | DRG 871 ==
LOC: OBSVTOIN 10:47 → 5 10:47 → 3S 01-11 13:47
PROVIDERS: ADMIT Internal Medicine; ATTEND Internal Medicine
PROC: 3E0F73Z Introduction of Anti-inflammatory into Respiratory Tract, Via Natural or Artificial Opening (ICD-10-PCS; 2017-01-10)
PROC: 5A09457 Assistance with Respiratory Ventilation, 24-96 Consecutive Hours, Continuous Positive Airway Pressure (ICD-10-PCS; principal; 2017-01-11)
DX: A41.9 Sepsis, unspecified organism (principal); I50.21 Acute systolic (congestive) heart failure; J96.01 Acute respiratory failure with hypoxia; N17.0 Acute kidney failure with tubular necrosis; R65.21 Severe sepsis with septic shock; J18.9 Pneumonia, unspecified organism; I13.0 Hypertensive heart and chronic kidney disease with heart failure and stage 1 through stage 4 chronic kidney disease, or unspecified chronic kidney disease; Z68.41 Body mass index [BMI] 40.0-44.9, adult; Z66 Do not resuscitate; I48.0 Paroxysmal atrial fibrillation; N18.9 Chronic kidney disease, unspecified; E11.649 Type 2 diabetes mellitus with hypoglycemia without coma; E11.22 Type 2 diabetes mellitus with diabetic chronic kidney disease; E78.5 Hyperlipidemia, unspecified; E11.51 Type 2 diabetes mellitus with diabetic peripheral angiopathy without gangrene; M19.90 Unspecified osteoarthritis, unspecified site; E66.01 Morbid (severe) obesity due to excess calories; Z89.611 Acquired absence of right leg above knee; Z86.73 Personal history of transient ischemic attack (TIA), and cerebral infarction without residual deficits; Z90.49 Acquired absence of other specified parts of digestive tract; Z90.710 Acquired absence of both cervix and uterus; Z79.82 Long term (current) use of aspirin; Z79.4 Long term (current) use of insulin; Z79.899 Other long term (current) drug therapy
CPT/HCPCS: 36415; 71250; 76775; 80048; 80053; 80061; 80076; 81001; 82043; 82550; 82553; 82570; 82803; 82962; 83036; 83735; 83880; 84156; 84484; 85025; 85027; 87040; 87070; 87205; 93005; 93010; 93306; 94660; G0378; G0379; J1265; J1650; J1815; J1940; J1956; J2405; J7030; J7050; J7620